=== PATIENT | female | born 1990 | race Caucasian/White ===

== ENCOUNTER 2017-02-10 09:34 | Day surgery (SDC) | payer OTHER ==
[~2017-02-10 09:34] MED LIST: ACETAMINOPHEN 1,000 MG/100 ML BTL IV ONE; FAMOTIDINE 20MG TABLET PO ONE; MECLIZINE 25 MG TABLET PO ONE; METOCLOPRAMIDE 10 MG TABLET PO ONE
[2017-02-10] MEDS ORDERED: LIDOCAINE 2% MDV (20MG/ML) 20ML VIAL IV ONE (14:35)
[2017-02-10] MEDS ORDERED: PROPOFOL 10 MG/ML VIAL IV ONE (14:35)
[2017-02-10] MEDS ORDERED: SEVOFLURANE 250 ML INH ONE (14:35)
[2017-02-10] MEDS ORDERED: ONDANSETRON HCL IV 4 MG/2 ML VIAL IVP ONE (14:35)
[2017-02-10] MEDS ORDERED: KETOROLAC 30 MG/ML VIAL IVP ONE (14:35)
[2017-02-10] MEDS ORDERED: MIDAZOLAM HCL 2MG/2ML VIAL IV ONE (14:35)
[2017-02-10] MEDS ORDERED: FENTANYL PF 0.25MG/5ML AMPUL IV ONE (14:35)
[2017-02-10] MEDS ORDERED: HYDROMORPHONE HCL 2 MG/ML VIAL IV ONE (14:39)
[2017-02-10] MEDS ORDERED: METOCLOPRAMIDE HCL 10 MG/2 ML VIAL IVP ONE (14:39)
--- NOTE | 2017-02-12 10:59 | Operative Note ---
DATE OF SURGERY: 02/10/2017. Surgeon: Alek Guillermo DO. PREOPERATIVE DIAGNOSIS: Patellofemoral instability of the left knee. POSTOPERATIVE DIAGNOSIS: Patellofemoral instability of the left knee. OPERATION: Medial patellofemoral ligament reconstruction using gracilis allograft, left knee. PROCEDURE: This 26-year-old female was taken to the operating room and placed in the supine position on the operating room table. General anesthesia was induced, and the left lower extremity was elevated, prepped with Hibiclens, and draped in the usual sterile fashion. At this point, we placed a whipstitch in each end of the gracilis graft, approximately 20 mm on each side, and subsequently, once the graft had been prepared, the leg was elevated, exsanguinated, and the tourniquet inflated to 300 mmHg. An incision was made in the medial aspect of the patella, and dissection was carried down to the medial border of the patella at the attachment of the MPFL. Subsequently, we used the drill holes wire a guidewire at the superior pole and then one about 15 mm distal to that. Patient had somewhat of an unusual shape to her patella, making it necessary for us to move it just slightly more distal than normal, but still with excellent position of the holes. We then drilled the holes and subsequently passed 4.75 swivel lock anchors with the graft attached to each one, thus forming a loop, but secured at both ends in the patellar. Subsequently, we dissected down medial to the VMO, but still extraarticular, and then exited at the point of entrance to the isometric point. The image intensifier was brought into the operative field. A Beath needle was placed at this point using the guide. This subsequently gave us excellent position of this guidewire, and it was drilled across the knee from medial to lateral and slightly in a proximal direction. It exited the skin. We then passed a passing suture through the hole and secured this while we drilled a 7 mm hole in the distal femur over the guidewire just past. We drilled to the opposite cortex and subsequently a Nitinol wire was placed alongside the Beath needle in the hole in the femur. Subsequently, a passing suture was wrapped around the graft, and it would shuttle down to the isometric point, and the shuttling and passing sutures were removed. One suture was left securely around the graft, and the ends of this suture were passed through the eye of the Beath needle. The Beath needle was then pulled through the femur from medial to lateral, and the sutures were then outside the skin laterally. Traction was then placed on the graft, and the knee was placed in approximately 20 degrees of flexion. The appropriate alignment of the patella was identified, and it was then securely fixed in this position by placing a 7 mm bioabsorbable screw over the Nitinol wire. Once this had been secured, the passing suture was removed, and the knee was taken through a range of motion and the graft found to be stable, as well as the patella. All wounds were then copious irrigated with lactated Ringer solution. The medial soft tissues of the patella were reapproximated with 0 Vicryl, subcutaneous tissue with 3-0 Vicryl, and the skin with running 4-0 nylon suture. 3-0 Vicryl and 4-0 nylon were also used to close the other incisions medially. Sterile dressings were then applied, the tourniquet released, and the knee immobilizer applied. The patient was then taken to the recovery room in satisfactory condition. GROSS PATHOLOGY: This patient demonstrated gross patellofemoral instability of her left knee, which was stabilized using an Arth[employer] medial patellofemoral ligament (MPFL) reconstruction kit. MELLY
== END 2017-02-10 13:45 | disposition home or self-care (01) ==
LOC: SUR 09:34
PROVIDERS: ATTEND Orthopaedic Surgery
DX: M23.52 Chronic instability of knee, left knee (principal); F17.200 Nicotine dependence, unspecified, uncomplicated
CPT/HCPCS: 27428; 01320; 81025; 76000; J1885; J2405; J1170; J2765